=== PATIENT | female | born 1940 | race Caucasian/White ===

== ENCOUNTER 2018-04-11 06:21 | Outpatient (CLI) ==
--- NOTE | 2018-04-11 09:27 | STRESSMOD ---
Date of Test: 04/11/18 Ordering Physician: DR. ANGY REDD Occupation: RETIRED Reason for Exam: CHEST PAIN/ PRESSURE Smoking History: NONE Height: 68" Weight: 180 LBS Current Medications: ENALAPRIL, CLONIDINE, ATORVASTATIN, SYNTHROID Resting EKG: SINUS RHYTHM/ NO ACUTE CHANGES Target Heart Rate: 119/141 S-T SEGMENT STAGE MPH/GRADE HEART RATE BPM BLOOD PRESSURE mmhg RHYTHM +/- ELEVATION DEPRESSION SYMPTOMS,COMMENTS At Rest 90 180/100 SR X NONE 1 1.7/0% 2 1.7/5% 3 1.7/10% 4 2.5/12% 5 3.4/14% Immediately After 150 240/102 SR X SHORT OF BREATH Minutes Post Exercise 3:00 118 226/98 SR X NO COMMENTS Minutes Post Exercise 6:00 10:00 100 94 210/106 180/102 SR SR X X NO COMMENTS NO COMMENTS DURATION OF EXERCISE: 2:10 MAXIMUM HEART RATE REACHED: 150 BPM REASON FOR TERMINATION: SHORT OF BREATH 94% OXYGEN SATURATION WITH EXERCISE ON ROOM AIR METS 4.6 INTERPRETATION: 1. NO EVIDENCE OF ISCHEMIC ST-T WAVE CHANGES 2. NO CHEST PAIN OR DISCOMFORT 3. PVC'S FEW WITH EXERCISE 4. BLOOD PRESSURE RESPONSE: HYPERTENSION AT REST AND WITH EXERCISE (SEVERE) NORMAL LEFT VENTRICULAR CONTRACTILITY--RESTING AND POST EXERCISE DR. REDD'S OFFICE CONTACTED CONCERNING PATIENT'S BLOOD PRESSURE. CUCA FROM DR. REDD'S OFFICE ADVISED THE PATIENT TO MAKE AN APPOINTMENT FOR THIS AFTERNOON. NEGRO
--- NOTE | 2018-04-11 10:04 | ECHOSTRESS ---
Date of Exam: 04/11/18 Ordering Physician: DR. ANGY REDD Reason for Echo: CHEST PAIN, STRESS TEST--NO ISCHEMIA M-Mode Normal Adult Results LV Dimensions Normal Adult Results AoV Opening excursions >1.6 LVEDD-base- 3.5-5.8 Ao root dimensions 2.0-3.7 LVESD-base- 3.1-4.6 L. Atrium dimensions 1.9-3.8 Post. Wall thickness 0.8-1.1 IV septum (thickness) 0.7-1.2 Post. Wall excursion 0.72-1.3 Septal motion Systolic motion R. Ventricular cavity 1.5-2.0 LVEF 60% Paradoxical septal wall motion 2-D: NORMAL LEFT VENTRICULAR CONTRACTILITY--RESTING AND POST EXERCISE M-MODE: MV: AV: TV: PV: CHAMBER SIZE: WALL MOTION: NORMAL LEFT VENTRICULAR CONTRACTILITY--RESTING AND POST EXERCISE PERICARDIUM: INTERPRETATION: 1. NORMAL LEFT VENTRICULAR CONTRACTILITY--RESTING AND POST EXERCISE MTDD
== END 2018-04-11 06:22 | disposition home or self-care (01) ==
LOC: CAR 06:21
PROVIDERS: ATTEND Family Medicine
DX: R07.9 Chest pain, unspecified (principal)